=== PATIENT | female | born 1990 | race African-American/Black ===

== ENCOUNTER 2018-06-13 19:22 | Emergency (ER) | payer SELFPAY ==
[~2018-06-13] VITALS: Ht 170.2 cm; Wt 66.0 kg
[2018-06-13 19:33] VITALS: BP 130/82
== END 2018-06-13 20:00 | disposition left against medical advice (07) ==
LOC: ER 19:22
DX: R55 Syncope and collapse (principal); Z53.21 Procedure and treatment not carried out due to patient leaving prior to being seen by health care provider